=== PATIENT | female | born 1950 | race Caucasian/White ===

== ENCOUNTER 2021-01-28 06:50 | Emergency (ER) | payer MEDICARE, OTHER ==
[~2021-01-28] VITALS: Ht 157.5 cm; Wt 68.0 kg
[~2021-01-28 06:50] MED LIST: DULO30; GABA100; GABA400; LEVSOD75; METH10; METPHE27ER; TRAM50
[2021-01-28] MEDS ORDERED: ELIQUIS5 MG PO (07:08)
== END 2021-01-28 10:19 | disposition home or self-care (01) ==
LOC: ER 06:50
DX: S00.03XA Contusion of scalp, initial encounter (principal); S63.617A Unspecified sprain of left little finger, initial encounter; M54.2 Cervicalgia; Z79.01 Long term (current) use of anticoagulants; Z79.899 Other long term (current) drug therapy; Z88.2 Allergy status to sulfonamides; Z88.1 Allergy status to other antibiotic agents; W01.198A Fall on same level from slipping, tripping and stumbling with subsequent striking against other object, initial encounter
CPT/HCPCS: 70450; 72125; 73030; 73140; 99284-25